=== PATIENT | male | born 1975 | race Caucasian/White ===

== ENCOUNTER 2023-04-04 07:40 | Outpatient (CLI) | payer OTHER, SELFPAY ==
--- NOTE | 2023-04-04 08:26 | W.ANESCHARGE ---
Anesthesia Charges Start Date/Time Anesthesia Start Date: 04/04/23 Anesthesia Start Time: 08:45 Stop Date/Time Anesthesia Stop Date: 04/04/23 Anesthesia Stop Time: 09:17
--- NOTE | 2023-04-04 09:19 | W.ANESCHARGE ---
Anesthesia Charges Start Date/Time Anesthesia Start Date: 04/04/23 Anesthesia Start Time: 08:45 Stop Date/Time Anesthesia Stop Date: 04/04/23 Anesthesia Stop Time: 09:17
== END 2023-04-04 07:41 | disposition home or self-care (01) ==
PROVIDERS: PCP Family Medicine; Visit Provider Internal Medicine Gastroenterology
DX: Z12.11 Encounter for screening for malignant neoplasm of colon (principal); R19.7 Diarrhea, unspecified; D12.8 Benign neoplasm of rectum
CPT/HCPCS: 00811; 00812; 45380; 45385; 88305; J2704